=== PATIENT | female | born 1995 | race Caucasian/White ===

== ENCOUNTER 2017-12-17 23:21 | Emergency (ER) | payer SELFPAY ==
[2017-12-17 23:28] VITALS: TEMP 98.9; BMI 26.6
--- NOTE | 2017-12-17 23:35 | PDOC ---
Attending Attestation - Resident Resident Name: Brice Cabrera - HPI HPI: 12/18/17 01:28 Pt presents to the ED complaining of the acute onset of suprapubic pain today. Pain is constant and severe. History of similar but less severe pain for the last 5 months. - Physicial Exam PE: 12/21/17 09:31 Agree with resident exam. Patient appears uncomfortable and is tearful. Abdomen is soft, and non distended, but has suprapubic tenderness without guarding or rebound. + R CVA tenderness. - Medical Decision Making 12/21/17 09:34 Pt presents to the ED complaining of the acute onset of suprapubic pain. Labs show evidence of UTI. US shows normal ovarian flow, IUD in place, no adnexal masses. PAtient feels greatly improved after medication in the ED. Will treat for pyelo and discharge home with referral to primary STAFF CYTOTECHNOLOGIST.
[2017-12-17] MEDS ORDERED: ACETAMINOPHEN 1000 MG/100 ML VIAL (NON FORMULARY) IVPB ONE (23:36)
[2017-12-17] MEDS ORDERED: ACETAMINOPHEN INJECTION 100 ML IVPB ONE (23:39)
[2017-12-17] MEDS ORDERED: morphine SULFATE 4 MG/ML VIAL ONE (23:50)
[2017-12-18] MEDS ORDERED: oxyCODONE HCL 5 MG TABLET ONE (00:11)
[2017-12-18 00:12] LABS: URINE APPEARANCE SLCLOUDY; URINE BILIRUBIN NEGATIVE (<2.0 mg/dL); URINE COLOR YELLOW; URINE GLUCOSE (UA) NEGATIVE (NEGATIVE); URINE KETONE NEGATIVE (NEGATIVE); URINE NITRITE NEGATIVE (NEGATIVE); URINE UROBILINOGEN NEGATIVE mg/dL (0.2-1.0)
[2017-12-18 00:14] LABS: HCG,QUALITATIVE URINE Negative
[2017-12-18] MEDS ORDERED: KETOROLAC TROMETHAMINE 30 MG/1 ML VIAL IVPUSH ONE (00:16)
--- NOTE | 2017-12-18 00:21 | PDOC ---
History of Present Illness - General Chief Complaint: Pain Stated Complaint: PAIN, ACUTE Time Seen by Provider: 12/17/17 23:35 - History of Present Illness Initial Comments: 12/18/17 00:21 22 yo F w no sig pmh is here with "excruciating diffuse abdominal pain" She claims there is "definitely something wrong with my IUD" and she repeatedly requests it be taken out. Her pain began this morning at 12 midday. It progressively worsened throughout the day until it became excruciating at night before she went to bed and was simply too much for her to handle. She says she started feeling warm around 6 pm today. She endorses nausea but no emesis. She denies any chest pain, SOB, or difficulty breathing. She is sexually active with men and has had 3 partners in the past year. She does not use condoms. Her most recent male partner had an STD which he "took a pill for and the patient subsequently took that pill" She does not know which infection it was for. LMP finished 4 days ago. 12/18/17 00:27 12/18/17 00:30 12/18/17 00:59 Past History - Past Medical History Allergies/Adverse Reactions: Allergies Allergy/AdvReac Type Severity Reaction Status Date / Time No Known Allergies Allergy Verified 12/18/17 00:47 Home Medications: Ambulatory Orders Doxycycline Hyclate 100 mg PO BID #24 tablet 12/18/17 Levofloxacin [Levaquin] 750 mg PO DAILY #7 tablet 12/18/17 COPD: No - Suicide/Smoking/Psychosocial Hx Smoking History: Never smoked Have you smoked in the past 12 months: No Information on smoking cessation initiated: No Hx Alcohol Use: No Drug/Substance Use Hx: No Substance Use Type: None Review of Systems - Review of Systems Comments:: 12/18/17 00:29 CONSTITUTIONAL: Positive: Fever, diaphpresis Absent: chills, generalized weakness, malaise, loss of appetite HEENT: Absent: rhinorrhea, nasal congestion, throat pain, throat swelling, difficulty swallowing, mouth swelling, ear pain, eye pain, visual Changes CARDIOVASCULAR: Absent: chest pain, syncope, palpitations, irregular heart rate, lightheadedness , peripheral edema RESPIRATORY: Absent: cough, shortness of breath, dyspnea with exertion, orthopnea, wheezing, stridor, hemoptysis GASTROINTESTINAL: Positive: Abdominal pain, nausea Absent: abdominal distension, vomiting, diarrhea, constipation, melena, hematochezia GENITOURINARY: Positive: Hematuria Absent: dysuria, frequency, urgency, hesitancy, flank pain, genital pain MUSCULOSKELETAL: Absent: myalgia, arthralgia, joint swelling SKIN: Absent: rash, itching, pallor HEMATOLOGIC/IMMUNOLOGIC: Absent: easy bleeding, easy bruising, lymphadenopathy, frequent infections ENDOCRINE: Absent: unexplained weight gain, unexplained weight loss, heat intolerance, cold intolerance NEUROLOGIC: Absent: headache, focal weakness or paresthesias, dizziness, unsteady gait, seizure, mental status changes, bladder or bowel incontinence PSYCHIATRIC: Absent: anxiety, depression, suicidal or homicidal ideation, hallucinations. 12/18/17 00:30 *Physical Exam - Vital Signs Last Vital Signs Temp Pulse Resp BP Pulse Ox 98.9 F 118 H 23 139/79 100 12/17/17 23:26 12/17/17 23:26 12/17/17 23:26 12/17/17 23:26 12/17/17 23:26 - Physical Exam Comments: 12/18/17 00:31 PELVIC: There is a slight amount of blood in the vaginal vault. No active cervical bleeding. No CMT. No adnexal tenderness. Iud string visualized on exam. ABDOMINAL: + R sided CVA tenderness. Abdomen is rigid on the R side. It is diffusely tender. the worst pain is in the suprapubic region. There is minimal guarding. Bowel sounds are decreased. GENERAL: Patient is in significant distress due to pain. She is well developed, well nourished. Awake and alert. HEENT: Normocephalic, atraumatic. PERRLA, EOMI. No conjunctival pallor. Sclera are non- icteric. Moist mucous membranes. Oropharynx is clear. NECK: Supple. Full ROM. No JVD. No thyromegaly. No lymphadenopathy. CARDIOVASCULAR: tachycardic rate and regular rhythm. No murmurs, rubs, or gallops. Distal pulses are 2+ and symmetric. PULMONARY: No evidence of respiratory distress. Lungs clear to auscultation bilaterally. No wheezing, rales or rhonchi. MUSCULOSKELETAL Normal range of motion at all joints. No bony deformities or tenderness. EXTREMITIES: No cyanosis. No clubbing. No edema. No calf tenderness. SKIN: Warm and dry. Normal capillary refill. No rashes. No jaundice. NEUROLOGICAL: Alert, awake, appropriate. Cranial nerves 2-12 intact. Normal speech. Gait is normal without ataxia. PSYCHIATRIC: Cooperative. Good eye contact. Appropriate mood and affect. 12/18/17 00:43 ED Treatment Course - LABORATORY CBC & Chemistry Diagram: 12/17/17 23:45 12/17/17 23:45 - ADDITIONAL ORDERS Additional order review: Laboratory Results 12/18/17 00:03 Urine HCG, Qual Negative - Medications Given in the ED: ED Medications Discontinued Medications Generic Name Dose Route Start Last Admin Trade Name Lakisha PRN Reason Stop Dose Admin Acetaminophen 1,000 mg 12/17/17 23:36 12/17/17 23:53 Ofirmev Injection - IVPB 12/17/17 23:37 1,000 mg ONCE ONE Administration Medical Decision Making - Medical Decision Making 12/18/17 00:35 22 yo F here with sudden onset diffuse abdominal pain. + r sided CVA tenderness. DD includes but not limited to: renal stone, UTI/pylo, ovarian torsion, ovarian cyst rupture, ectopic , IUD misplacement, PID. Plan: Cbc, cmp, hcg, ua/uc, TVUS, analgesia, re-assess. Patient re-assessed after acetaminophen and she feels much better. HR is down to 86. She is still in pain but much less so than before. UA shows a likely infection. Given her R sided CVA this is most likely pyelonephritis. Given patients sexual partners exposure to an unknown STD we will treat for both Pyelonephritis and PID with levo and doxy. Patient agrees to get tested for chlamydia and GC as an outpatient at the [facility] tomorrow. Signing out patient to Dr. Al. 12/18/17 00:43 12/18/17 00:46 12/18/17 01:01 12/18/17 01:14 12/18/17 01:24 *DC/Admit/Observation/Transfer Diagnosis at time of Disposition: Pyelonephritis - Discharge Dispostion Disposition: HOME Condition at time of disposition: Improved Decision to Admit order: No - Prescriptions Prescriptions: Doxycycline Hyclate 100 mg PO BID #24 tablet Levofloxacin [Levaquin] 750 mg PO DAILY #7 tablet - Referrals Referrals: Ava Acevedo MD [Staff Physician] - Marlon Marino MD [Staff Physician] - - Patient Instructions Printed Discharge Instructions: Urinary Tract Infection, Pelvic Inflammatory Disease, Kidney Infection, Kidney Stones -- Child Additional Instructions: You came into the ER with severe abdominal pain. We found an upper urinary tract infection while you were in the ER. Please goto the pharmacy and car pick up driver the antibiotics we are prescribing for you. make sure to schedule an appointment with a women's apparel salesperson in the next 3 to 5 days to ensure you are getting better. Come back to the ER if you develop a bad fever, start vomiting, or have any other concerns. - Post Discharge Activity
[2017-12-18 00:22] LABS: URINE LEUK ESTERASE 3+ (NEGATIVE); URINE PROTEIN 2+ (NEGATIVE)
[2017-12-18] MEDS ORDERED: morphine CARPU-JECT 4 MG/1 ML DISP.SYRIN IVPUSH ONE (00:22)
[2017-12-18 00:27] LABS: EPI CELLS RARE /HPF (FEW); URINE BACTERIA RARE /hpf (NONE SEEN); URINE MUCUS RARE
[2017-12-18] MEDS ORDERED: KETOROLAC TROMETHAMINE 30 MG/1 ML VIAL ONE (00:41)
[2017-12-18 00:44] LABS: BASO % 0.2 % (0-2.0); EOS % 0.2 % (0-4.5); HEMATOCRIT 38.5 % (32.4-45.2); HEMOGLOBIN 13.3 GM/dL (10.7-15.3); LYMPH % 10.9 % (8-40); MCH 32.9 pg (25.7-33.7); MCHC 34.6 g/dl (32.0-36.0); MEAN CELL VOLUME 95.1 fl (80-96); MEAN PLT VOLUME 9.6 fl (7.5-11.1); MONO % 6.9 % (3.8-10.2); NEUT % 81.8 % (42.8-82.8); PLATELET COUNT 188 K/MM3 (134-434); RBC 4.05 M/mm3 (3.60-5.2); WHITE BLOOD COUNT 11.7 K/mm3 (4.0-10.0)
--- NOTE | 2017-12-18 00:54 | PDOC ---
*Physical Exam - Vital Signs Last Vital Signs Temp Pulse Resp BP Pulse Ox 98.9 F 118 H 23 139/79 100 12/17/17 23:26 12/17/17 23:26 12/17/17 23:26 12/17/17 23:26 12/17/17 23:26 - Physical Exam Comments: GENERAL: Awake, alert, and fully oriented, in no acute distress HEAD: No signs of trauma, normocephalic, atraumatic ABDOMEN: Soft, nontender, normoactive bowel sounds. No guarding, no rebound. No masses EXTREMITIES : Normal inspection, Normal range of motion, no edema. No clubbing or cyanosis NEUROLOGICAL: Cranial nerves II through XII grossly intact. Normal speech, normal gait, no focal sensorimotor deficits SKIN: Warm, Dry, normal turgor, no rashes or lesions noted 12/18/17 05:28 ED Treatment Course - LABORATORY CBC & Chemistry Diagram: 12/17/17 23:45 12/18/17 00:55 - ADDITIONAL ORDERS Additional order review: Laboratory Results 12/18/17 12/17/17 00:03 23:45 Sodium Cancelled Potassium Cancelled Chloride Cancelled Carbon Dioxide Cancelled Anion Gap Cancelled BUN Cancelled Creatinine Cancelled Creat Clearance w eGFR Cancelled Random Glucose Cancelled Calcium Cancelled Total Bilirubin Cancelled AST Cancelled ALT Cancelled Alkaline Phosphatase Cancelled Total Protein Cancelled Albumin Cancelled Urine Color Yellow Urine Appearance Slcloudy Urine pH 8.0 Ur Specific Orange 1.005 Urine Protein 2+ H Urine Glucose (UA) Negative Urine Ketones Negative Urine Blood 3+ H Urine Nitrite Negative Urine Bilirubin Negative Urine Urobilinogen Negative Ur Leukocyte Esterase 3+ H Urine WBC (Auto) 294 Urine RBC (Auto) 430 Ur Epithelial Cells Rare Urine Bacteria Rare Urine Mucus Rare Urine HCG, Qual Negative 12/17/17 23:45 RBC 4.05 MCV 95.1 MCHC 34.6 RDW 13.0 MPV 9.6 D Neutrophils % 81.8 Lymphocytes % 10.9 D Monocytes % 6.9 Eosinophils % 0.2 Basophils % 0.2 - Medications Given in the ED: ED Medications Discontinued Medications Generic Name Dose Route Start Last Admin Trade Name Freq PRN Reason Stop Dose Admin Acetaminophen 1,000 mg 12/17/17 23:36 12/17/17 23:53 Ofirmev Injection - IVPB 12/17/17 23:37 1,000 mg ONCE ONE Administration Ketorolac Tromethamine 30 mg 12/18/17 00:16 12/18/17 00:45 Toradol Injection - IVPUSH 12/18/17 00:17 30 mg ONCE ONE Administration Morphine Sulfate 4 mg 12/18/17 00:22 12/17/17 23:40 Morphine Injection - IVPUSH 12/18/17 00:23 Not Given ONCE ONE Medical Decision Making - Medical Decision Making I have assumed care of the patient from Dr. Cabrera, who has discussed the clinical presentation, work-up, and ED course thus far. I have reviewed the patients medical record and ED course and agree with all aspects of care thus far. Patient pending U/S Will treat UTI/pyelonephritis with Levofloxacin Plan for DC if U/S negative 12/18/17 00:53 U/S without evidence of pathology Patient reports sexual partner with recent diagnosis of STI Will treat patient for UTI and STI prophylactically Pt was asked to return to the ED immediately for any new or concerning or if they worsen. Pt was in agreement, endorsed understanding, and questions were answered. Dispo: Home 12/18/17 05:22 *DC/Admit/Observation/Transfer Diagnosis at time of Disposition: Pyelonephritis - Discharge Dispostion Disposition: HOME Condition at time of disposition: Improved Decision to Admit order: No - Prescriptions Prescriptions: Doxycycline Hyclate 100 mg PO BID #24 tablet Levofloxacin [Levaquin] 750 mg PO DAILY #7 tablet - Referrals Referrals: Ava Acevedo MD [Staff Physician] - Marlon Marino MD [Staff Physician] - - Patient Instructions Printed Discharge Instructions: Urinary Tract Infection, Pelvic Inflammatory Disease, Kidney Infection, Kidney Stones -- Child Additional Instructions: You came into the ER with severe abdominal pain. We found an upper urinary tract infection while you were in the ER. Please goto the pharmacy and oyster picker the antibiotics we are prescribing for you. make sure to schedule an appointment with a er tech in the next 3 to 5 days to ensure you are getting better. Come back to the ER if you develop a bad fever, start vomiting, or have any other concerns. - Post Discharge Activity
[2017-12-18] MEDS ORDERED: DOXYCYCLINE HYCLATE 100 MG CAPSULE PO ONE ×2 (01:04→01:27)
[2017-12-18 01:30] LABS: ALBUMIN 4.5 g/dl (3.4-5.0); ALK PHOS 50 U/L (45-117); ANION GAP 8 MMOL/L (8-16); BILIRUBIN,TOTAL 1.2 mg/dL (0.2-1.0); BLOOD UREA NITROGEN 13 mg/dL (7-18); CALCIUM 9.5 mg/dL (8.5-10.1); CHLORIDE 103 mmol/L (98-107); CO2 28 mmol/L (21-32); CREATININE 0.9 mg/dL (0.55-1.3); GLUCOSE,RANDOM 115 mg/dL (74-106); POTASSIUM 4.6 mmol/L (3.5-5.1); SGOT/AST 13 U/L (15-37); SGPT/ALT 12 U/L (13-61); SODIUM 139 mmol/L (136-145); TOT PROT 7.4 g/dl (6.4-8.2)
[2017-12-18 01:57] VITALS: BP 108/66; PULSE 99
== END 2017-12-18 01:57 | disposition home or self-care (01) ==
LOC: JER 23:21
PROC: 3E033NZ Introduction of Analgesics, Hypnotics, Sedatives into Peripheral Vein, Percutaneous Approach (ICD-10-PCS; principal; 2017-12-17)
PROC: 3E0333Z Introduction of Anti-inflammatory into Peripheral Vein, Percutaneous Approach (ICD-10-PCS; 2017-12-17)
DX: N10 Acute pyelonephritis (principal); Z97.5 Presence of (intrauterine) contraceptive device
CPT/HCPCS: 36415; 76830-TC; 80053; 81003; 81015; 84703; 85025; 87086; 87186; 99282-25; J0131